=== PATIENT | male | born 1990 | race Caucasian/White ===

== ENCOUNTER 2019-04-17 21:53 | Emergency (ER) | payer OTHER ==
[~2019-04-17] VITALS: Ht 185.4 cm; Wt 98.0 kg
[~2019-04-17 21:53] MED LIST: CEPH500 PO; CIPR500 PO; CLIN300 PO; DOXY100 PO; HYDACE5 PO; IBUP800 PO; PROM25 PO; RXPROM25 PO; SULTRIDS PO; THERAFLU; TYLENOL PRN
== END 2019-04-18 00:29 | disposition home or self-care (01) ==
LOC: ER 21:53
DX: S62.607A Fracture of unspecified phalanx of left little finger, initial encounter for closed fracture (principal); Z88.0 Allergy status to penicillin; W21.01XA Struck by football, initial encounter
CPT/HCPCS: 29125; 73140; 99283-25